=== PATIENT | female | born 2000 | race Caucasian/White ===

== ENCOUNTER 2023-02-18 18:49 | Emergency (ER) | payer OTHER, SELFPAY ==
[2023-02-18 19:18] VITALS: BP 113/68; PULSE 86; RESP 16; TEMP 36.3; O2SAT 98
--- NOTE | 2023-02-18 19:57 | ED.SEIZURE ---
HPI - Seizure General Chief Complaint: Seizure Stated Complaint: seizures Time Seen by Provider: 02/18/23 19:55 Source: patient and other (boyfriend) Mode of arrival: ambulatory Limitations: no limitations History of Present Illness HPI Narrative: This is a 22-year-old female with a history of epilepsy who reports having 5 seizures last night and 2 today. She loses consciousness during her seizures and is typically postictal afterwards. She states her primary care physician in [place] took her off Lamictal 100 mg b.i.d. a few months ago because she had a breakthrough seizure. She was not placed on alternative antiepileptic medication. She tried calling her neurologist Dr. Page's office in [place] (affiliated with [facility]) several times but they didn't answer their phone. She recently moved to this area and has a lot of stressors in her as she had to get away from a bad situation where she was living. Is on the phone initially when I came in with my homie who is in senior care. Her boyfriend enters shortly thereafter and she states he can stay in the room. He states he was able to calm her down last night in between seizures by stroking her hair which her mother had said would help. No incontinence of bowel or bladder, no tongue trauma. She denies any alcohol states she has been sleeping okay because she is on medicine for this. She denies any new medications. She previously used marijuana for her seizures but states she has not been able to use this lately because it is too expensive and she can't afford it. She denies ever having undergone an MRI. She states she was supposed to undergo an EEG which was 21 years old for her seizures but she was deemed to be too sick at that time with fever and upper respiratory symptoms the so was canceled that day and she tried for 2 weeks to schedule it without any success. Related Data Allergies Allergy/AdvReac Type Severity Reaction Status Date / Time chicken derived Allergy Vomiting Verified 02/18/23 19:25 PMFSH Past Medical History Medical History (Updated 02/19/23 @ 00:06 by Navdeep Freeman) Absence seizure Epilepsy Social History Social History (Updated 02/18/23 @ 22:59 by Renita Beyer MD) Alcohol intake: never Substance use: former Substance use type: marijuana Exam Narrative: GENERAL: Well-appearing, well-nourished, and in no acute distress. HEAD: Normocephalic, atraumatic. EYES: Non injected, non icteric ENT: Nares clear, no rhinorrhea or epistaxis. No tongue trauma. NECK: Supple. CHEST: Speaking in complete sentences. no respiratory distress. HEART: Regular rate and rhythm. . ABDOMEN: Soft, nondistended. EXTREMITIES: Normal range of motion. No edema. SKIN: Warm, dry, no rash. NEURO: No focal deficits. Alert and oriented. No abnormal movements appreciated. Speaking without aphasia or dysarthria. PSYCH: Normal mood and affect. Course Vital Signs Vital signs: Vital Signs Temperature 97.3 F L 02/18/23 19:18 Pulse Rate 86 02/18/23 19:18 Respiratory Rate 16 02/18/23 19:18 Blood Pressure 113/68 02/18/23 19:18 Pulse Oximetry 98 02/18/23 19:18 Oxygen Delivery Room Air 02/18/23 19:18 Temperature 97.3 F L 02/18/23 19:18 Pulse Rate 86 02/18/23 19:18 Respiratory Rate 16 02/18/23 19:18 Blood Pressure 113/68 02/18/23 19:18 Pulse Oximetry 98 02/18/23 19:18 Oxygen Delivery Room Air 02/18/23 19:18 MDM - Seizure MDM Narrative Medical decision making narrative: Patient is a 22 year old with pmh epilepsy who presents after a reported 5 seizures last night and 2 today. She states her PCP discontinued her Lamictal 100mg BID a few months ago after she had a breakthrough seizure. She has been unable to get ahold of her neurologist. She recently moved her so hasn't established with anyone in the area. POC glucose wnl. VS WNL. Seizures appear to be due to not taking any antiepileptic. Patient is back to [facility]
[2023-02-18 20:10] LABS: Glucose Point of Care 103 mg/dl (65-105)
[2023-02-18] MEDS: lamoTRIgine 100 MG TABLET PO (21:11)
== END 2023-02-18 21:38 | disposition home or self-care (01) ==
PROVIDERS: Emergency Provider Student in an Organized Health Care Education/Training Program
DX: G40.909 Epilepsy, unspecified, not intractable, without status epilepticus (principal)
CPT/HCPCS: 81025; 82948; 99283; A9270

== ENCOUNTER 2023-02-28 23:15 | Emergency (ER) | payer OTHER, SELFPAY ==
--- NOTE | ~2023-02-28 | XR_ITS ---
EXAMINATION: XR elbow LT min 3V DATE: 03/01/2023 06:07 INDICATION: Left elbow injury and pain. TECHNIQUE: 4 views of left elbow were obtained. COMPARISON: None. FINDINGS: Bone alignment is normal. No fracture. Joint spaces are normal. No elbow joint effusion. IMPRESSION: 1. Normal left elbow. Reviewed, dictated and finalized at location E. ITECTURE FACULTY MEMBER IMPRESSION: 1. Normal left elbow.
--- NOTE | ~2023-02-28 | XR_ITS ---
EXAMINATION: XR wrist LT 2V DATE: 03/01/2023 08:56 INDICATION: Distal left radioulnar joint subluxation status post reduction. TECHNIQUE: 3 views of left wrist were obtained. COMPARISON: Left wrist radiographs at 7:09 AM FINDINGS: Bone alignment is normal. No fracture. Joint spaces are normal. Cast/splint material is not ed. IMPRESSION: 1. Normal bone alignment. Reviewed, dictated and finalized at location E. R CONE MACHINE OPERATOR IMPRESSION: 1. Normal bone alignment.
--- NOTE | ~2023-02-28 | XR_ITS ---
EXAMINATION: XR wrist LT 2V DATE: 03/01/2023 07:20 INDICATION: Left wrist injury. Left wrist reduction. TECHNIQUE: 2 views of left wrist were obtained. COMPARISON: Left wrist radiographs 02/28/2023 FINDINGS: Bone alignment is normal. No fracture. Joint spaces are normal. Cast material is noted. IMPRESSION: 1. No fracture. Reviewed, dictated and finalized at location E. ICAL CARE RN IMPRESSION: 1. No fracture.
--- NOTE | ~2023-02-28 | XR_ITS ---
EXAMINATION: XR wrist LT min 3V DATE: 02/28/2023 23:52 INDICATION: Left wrist pain after fall TECHNIQUE: Posteroanterior, ulnar deviation, oblique, and lateral views of the left wrist were obtain ed. COMPARISON: None available FINDINGS: No fracture is identified. There appears to be mild dorsal displacement of the distal ulna with respect to the radius on the lateral view. There is soft tissue swelling of the wrist. IMPRESSION: 1. Possible distal radioulnar joint subluxation. Reviewed, dictated and finalized at location F. TENDER
--- NOTE | ~2023-02-28 | XR_ITS ---
EXAMINATION: XR forearm LT 2V DATE: 03/01/2023 06:07 INDICATION: Left forearm injury and pain. TECHNIQUE: 2 views of left forearm were obtained. COMPARISON: None. FINDINGS: Bone alignment is normal. No fracture. Joint spaces are normal. No elbow joint effusion. IMPRESSION: 1. Normal left forearm. Reviewed, dictated and finalized at location E. ING TUTOR IMPRESSION: 1. Normal left forearm.
[2023-02-28 23:19] VITALS: BP 139/86; PULSE 80; RESP 14; TEMP 36.8; O2SAT 100
[2023-03-01 03:57] VITALS: BP 113/70; PULSE 70; RESP 15; TEMP 36.6; O2SAT 99
--- NOTE | 2023-03-01 05:52 | ED.UPPEXIN ---
HPI - Extremity Injury (Upper) General Chief Complaint: Extremity Injury, Upper Stated Complaint: fall on left wrist yesterday Time Seen by Provider: 03/01/23 03:24 Source: patient Limitations: no limitations History of Present Illness HPI narrative: Patient is a 22-year-old female presents to the emergency department complaining of a left arm injury. Patient states Saturday night she was at work at [employer] around 9:00 p.m. when she had a seizure with a known history of seizures that was anxiety induced and thinks she hit her left wrist because she has been having pain ever since and wants to get her left wrist checked out. Patient denies any history of injuries to this region in the past. Patient states she is right-handed. Patient states that she has noticed that is protruding out where she is having pain when she notes a dorsal protrusion of the distal ulna. Patient describes the pain as an ache. Patient admits to increased pain with any types of movements including supination and pronation. Patient's her last menstrual period is currently. Patient denies any allergies medications. Patient denies any other complaints. Patient denies numbness, weakness, paresthesias. Related Data Allergies Allergy/AdvReac Type Severity Reaction Status Date / Time chicken derived Allergy Vomiting Verified 02/18/23 19:25 Review of Systems Review of Systems: A 10 system review of systems was completed on the patient and is negative except for what is stated in the HPI. Nursing and ancillary documentation was reviewed. [facility] Past Medical History Medical History (Updated 03/01/23 @ 08:00 by Je Pope DO) Absence seizure Epilepsy Social History Social History (Updated 02/18/23 @ 22:59 by Renita Beyer MD) Alcohol intake: never Substance use: former Substance use type: marijuana Comments At time of signature, I have reviewed and agree with nursing past medical, surgical, social and family history unless otherwise noted. Please see the nursing chart for further information. There is no relevant family history pertinent to the presenting complaint. Exam Narrative: CONST: No acute distress. Well nourished. HENMT: Head is normocephalic and atraumatic. Moist mucous membranes. No posterior oropharynx erythema. EYES: No conjunctival icterus, injection, or pallor. PERRL. NECK: No meningeal signs. RESP: Able to speak in full sentences. Normal respiratory effort. CTAB. CARDIO: Regular rate. Regular rhythm. 2+ DP and radial pulses bilaterally. GI: Nondistended. No tenderness to palpation. Soft. : No CVA tenderness to palpation. SKIN: No rashes or lesions noted on exposed skin. NEURO: Oriented x3. Moves all extremities. Patient is able to make an okay sign with her left hand, abduct and adduct all of her fingers of her left hand, make a fist with her left hand. Patient has pain with flexion and extension of her left wrist in addition to pronation and supination and is holding in between pronation and supination. Sensation is intact to light touch throughout the entire left upper extremity. EXTREM/MSK/BACK: No pedal edema. Mild dorsal subluxation of the left distal ulna that reduces with direct pressure and supination and subluxes again with any pronation or lack of pressure over the dorsal distal ulna. No ulnar or radial deviation joint laxity of the left wrist. Capillary refill is less than 2 seconds in all distal digits of the left hand. Compartments are soft throughout the left upper extremity. No snuffbox tenderness to palpation bilaterally. PSYCH: Normal affect. Course Vital Signs Vital signs: Vital Signs Temperature 98.2 F 02/28/23 23:19 Pulse Rate 80 02/28/23 23:19 Respiratory Rate 14 02/28/23 23:19 Blood Pressure 139/86 02/28/23 23:19 Pulse Oximetry 100 02/28/23 23:19 Oxygen Delivery Room Air 02/28/23 23:19 Temperature 97.9 F 03/01/23 03:57 Pulse Rate 83 02/11
[2023-03-01 06:39] VITALS: BP 131/94; PULSE 91; RESP 14; O2SAT 100
[2023-03-01 07:26] VITALS: BP 125/97; PULSE 83; RESP 14; O2SAT 98
--- NOTE | 2023-03-01 08:46 | PC.NURSE ---
Post reduction OCL applied per PCT at 0700. Splint removed per Dr. Pope. Dr. Pope and Dr. Benoit applied plaster cast to left arm.
== END 2023-03-01 10:34 | disposition home or self-care (01) ==
PROVIDERS: Emergency Provider Student in an Organized Health Care Education/Training Program
DX: S63.072A Subluxation of distal end of left ulna, initial encounter (principal); G40.909 Epilepsy, unspecified, not intractable, without status epilepticus; W22.8XXA Striking against or struck by other objects, initial encounter
CPT/HCPCS: 25605; 25675; 73080; 73090; 73100; 73110; 99285; A4565

== ENCOUNTER 2023-03-10 03:46 | Emergency (ER) | payer OTHER, SELFPAY ==
[2023-03-10 03:49] VITALS: BP 120/84; PULSE 97; RESP 16; TEMP 36.8; O2SAT 100
[2023-03-10 04:36] LABS: Basophils Percent Auto 0.3 % (0.2-1.2); Eosinophils Absolute Auto 0.2 K/mm3 (0-0.3); Eosinophils Percent Auto 2.4 % (0-4.4); Hematocrit 37.3 % (37.0-47.0); Hemoglobin 12.2 g/dL (12.0-15.0); Immature Granulocyte Absolute 0.02 K/mm3 (0.00-0.031); Immature Granulocyte Percent A 0.2 % (0-0.5); Lymphocytes Absolute Auto 2.39 K/mm3 (0.9-3.2); Mean Corpuscular HGB Conc 32.7 g/dl (32-36); Mean Corpuscular Hemoglobin 31.4 pg (26-34); Mean Corpuscular Volume 95.9 fl (80-100); Mean Platelet Volume 11.2 fl (7.4-10.4); Monocytes Absolute Auto 0.5 K/mm3 (0.1-0.6); Monocytes Percent Auto 5.3 % (2.6-8.5); Neutrophils Absolute Auto 5.7 K/mm3 (1.3-6.7); Neutrophils Percent Auto 64.8 % (45.5-73.1); Platelet Count Result 189 k/mm3 (150-375); Red Blood Count 3.89 M/mm3 (4.2-5.4); Red Cell Distribution Width 12.1 % (11.5-14.5); White Blood Count 8.9 K/mm3 (4.5-10.0)
[2023-03-10 04:43] LABS: Appearance Urine Cloudy (Clear); Bacteria Urine 4+ /hpf; Bilirubin Urine Negative (Negative); Blood Urine Negative (Negative); Color Urine Yellow (Yellow); Glucose Urine UA Negative (Negative); Ketones Urine Negative (Negative); Leukocyte Esterase Ur Trace LEU/UL (Negative); Nitrate Urine Positive (Negative); Non Pathogenic Casts 0-2; Protein Urine Negative (Negative); RBC Urine 0-2 /hpf (0-2); Specific Grav Ur 1.014 (1.001-1.035); Squamous Epithelial Cell Urine Few /hpf (Few); Urobilinogen Urine 0.2 mg/dL (<2.0); pH Urine 6.5 (5.0-9.0)
[2023-03-10 04:49] LABS: Alanine Aminotransferase 10 U/L (6-35); Albumin Level 4.4 g/dL (3.5-5.1); Alkaline Phosphatase 66 U/L (38-126); Anion Gap 9 mmol/L (8-16); Aspartate Amino Transferase 17 U/L (14-36); Bilirubin,Total 0.4 mg/dL (0.2-1.3); Blood Urea Nitrogen 8 mg/dL (7-17); Calcium 9.5 mg/dL (8.4-10.2); Carbon Dioxide 23 mmol/L (22-30); Chloride 106 mmol/L (98-107); Estimated CRCL calculation 83 ml/min; Estimated Glomerular Filt Rate > 60; Glucose 99 mg/dL (65-110); Potassium 3.4 mmol/L (3.4-5.0); Sodium 138 mmol/L (137-145)
[2023-03-10 04:50] LABS: Ethanol < 10 mg/dL (<10); Platelet Clumps Present; Platelet Estimate Adequate (Adequate)
[2023-03-10 04:52] LABS: Large Platelets Present
[2023-03-10 04:53] LABS: Atypical Lymphocytes Present; Schistocytes None Seen (NORMAL)
[2023-03-10 05:01] LABS: Add Urine Microscopic? YES; Amphetamine Screen Urine Negative (Negative); Barbiturate Screen Urine Negative (Negative); Benzodiazepines Screen Urine Negative (Negative); Cannabinoid Screen Urine Positive (Negative); Cocaine Screen Urine Negative (Negative); Methadone Screen Urine Negative (Negative); Opiate Screen Urine Negative (Negative); Phencyclidine Screen Urine Negative (Negative)
[2023-03-10 05:12] LABS: SARS-CoV-2 RNA PCR Negative (Negative)
--- NOTE | 2023-03-10 05:27 | ED.GENADULT ---
HPI - General Adult General Chief complaint: Psychiatric Symptoms <Jesus Chavez MD - Last Filed: 03/16/23 19:12> Stated complaint: psych evaluation <Jesus Chavez MD - Last Filed: 03/16/23 19:12> Time Seen by Provider: 03/10/23 03:57 <Jesus Chavez MD - Last Filed: 03/16/23 19:12> History of Present Illness HPI narrative: patient is a 22-year-old female who presents emergency department chief complaint of hearing voices and suicidal ideation patient reports that she currently does not have a place to stay the area is trying to get to a higher were her boyfriend the patient states that down she was going to stay with someone tonight over coming on her and she decided not to stay there. The patient reports that she has been having intermittent thoughts of hurting herself with not have a specific plan at this time. <Jesus Chavez MD - Last Filed: 03/16/23 19:12> patient is a 22-year-old female who presents to the emergency department chief complaint of hearing voices and suicidal ideation patient reports that she currently does not have a place to stay the area is trying to get to a higher were her boyfriend the patient states that down she was going to stay with someone tonight over coming on her and she decided not to stay there. The patient reports that she has been having intermittent thoughts of hurting herself with not have a specific plan at this time. <Mike Ruano MD - Last Filed: 03/11/23 15:58> Related Data Allergies/adverse reactions: Allergies Allergy/AdvReac Type Severity Reaction Status Date / Time chicken derived Allergy Vomiting Verified 02/18/23 19:25 <Jesus Chavez MD - Last Filed: 03/16/23 19:12> Review of Systems Review of Systems: A 10 system review of systems was completed on the patient and is negative except for what is stated in the HPI. Nursing and ancillary documentation was reviewed. <Jesus Chavez MD - Last Filed: 03/16/23 19:12> [facility] Past Medical History Medical History: Medical History Absence seizure Epilepsy <Jesus Chavez MD - Last Filed: 03/16/23 19:12> Social History Social History: Social History Alcohol intake: never Substance use: former Substance use type: marijuana, methamphetamine and other <Jesus Chavez MD - Last Filed: 03/16/23 19:12> Exam Narrative: GENERAL: Well-appearing, well-nourished, and in no acute distress. HEAD: Normocephalic, atraumatic. EYES: PERRLA and EOMI. ENT: Nares clear, no rhinorrhea or epistaxis. Mucous membranes moist. NECK: Supple. CHEST: Clear to auscultation. No respiratory distress. HEART: Regular rate and rhythm. No murmur heard. Normal peripheral pulses. ABDOMEN: Soft, nontender, nondistended, normal active bowel sounds. EXTREMITIES: Normal range of motion. No edema. SKIN: Warm, dry, no rash. NEURO: No focal deficits. Alert and oriented x3. PSYCH: flat affect <Jesus Chavez MD - Last Filed: 03/16/23 19:12> Course Vital Signs Vital signs: Vital Signs Temperature 36.8 C 03/10/23 03:49 Pulse Rate 97 03/10/23 03:49 Respiratory Rate 16 03/10/23 03:49 Blood Pressure 120/84 03/10/23 03:49 Pulse Oximetry 100 03/10/23 03:49 Oxygen Delivery Room Air 03/10/23 03:49 Temperature 36.6 C 03/10/23 18:50 Pulse Rate 72 03/10/23 18:50 Respiratory Rate 16 03/10/23 18:50 Blood Pressure 112/68 03/10/23 18:50 Pulse Oximetry 100 03/10/23 18:50 Oxygen Delivery Room Air 03/10/23 03:49 <Jesus Chavez MD - Last Filed: 03/16/23 19:12> Vital Signs Temperature 36.8 C 03/10/23 03:49 Pulse Rate 97 03/10/23 03:49 Respiratory Rate 16 03/10/23 03:49 Blood Pressure 120/84 03/10/23 03:49
[2023-03-10] MEDS: CEPHALEXIN 500 MG CAPSULE PO ×2 (05:40→23:03)
[2023-03-10 10:00] VITALS: BP 114/70; PULSE 76; RESP 14; TEMP 36.6; O2SAT 100
[2023-03-10 14:00] VITALS: BP 116/68; PULSE 72; RESP 14; TEMP 36.7; O2SAT 98
[2023-03-10 18:50] VITALS: BP 112/68; PULSE 72; RESP 16; TEMP 36.6; O2SAT 100
--- NOTE | 2023-03-10 20:43 | PC.NURSE ---
This RN took over care of pt at 1900. Pt calm and cooperative. Pt stated to this RN that she feels as if she is being forced to get psychiatric treatment. This Rn explained process to pt, pt cooperative. Pt chart faxed to [facility] awaiting call back on status of pt acceptance.
--- NOTE | 2023-03-10 22:33 | PC.NURSE ---
Pt accepted at [facility].
--- NOTE | 2023-03-10 22:34 | PC.NURSE ---
Report given Ava GONGORA at this time.
== END 2023-03-10 23:30 ==
LOC: ANHED 04:55
PROVIDERS: Emergency Provider Emergency Medicine
DX: R45.851 Suicidal ideations (principal); N39.0 Urinary tract infection, site not specified; Z11.52 Encounter for screening for COVID-19; G40.909 Epilepsy, unspecified, not intractable, without status epilepticus
CPT/HCPCS: 36415; 80053; 80307; 81001; 81025; 84443; 85025; 85055; 87086; 87635; 99285; A9270

== ENCOUNTER 2023-03-31 10:37 | Emergency (ER) | payer OTHER, SELFPAY ==
[2023-03-31 10:41] VITALS: BP 135/92; PULSE 74; RESP 16; O2SAT 100
[2023-03-31 10:43] VITALS: BP 135/92; PULSE 78; RESP 16; TEMP 36.7; O2SAT 100
[2023-03-31 11:16] VITALS: BP 123/80; PULSE 78; RESP 16; O2SAT 100
[2023-03-31 11:31] VITALS: BP 128/80; PULSE 74; RESP 16; TEMP 36.6; O2SAT 100
--- NOTE | 2023-03-31 11:43 | ED.NAVMDI ---
HPI - Nausea/Vomiting/Diarrhea General Chief complaint: Nausea/Vomiting/Diarrhea Stated complaint: OD ON [place] ?? Time Seen by Provider: 03/31/23 10:40 Source: patient and old records reviewed Mode of arrival: EMS Limitations: no limitations History of Present Illness HPI Narrative: Patient is a 22-year-old female who presents the ED via EMS with report of potential overdose. Patient reports she recently injured her left wrist and was prescribed hydrocodone for this. She was seen in the ED initially and then was rx'd [place] by her primary care doctor a few days ago. Per med rec, patient had 30 hydrocodone/acetaminophen 5/325 prescribed [address] Dr[address] Marco Bronwe on 03/27 (furnace tender in [place], [place]). Patient reports she has been taking these as prescribed over the last couple of days, has not been taking more than directed. She states over the last couple days she has had intermittent dizziness/lightheadedness and thought this may be related to the hydrocodone. She last took a pill last night and developed nausea and vomiting after taking the hydrocodone. She believes she only took 1 pill last night, but states she is not sure. States her memory is bad. Reports she woke up with an empty pill bottle and persistent nausea. She became concerned that she may have overdosed herself on the hydrocodone. She then contacted EMS. Patient notes that her significant other ended their relationship this morning and states she was kicked out of his house. She denies taking the medications in excess in any attempt to harm herself or commit suicide. She denies any other drug or etoh use. Denies any other attempts at self harm. She denies current SI. She denies HI. States she just wanted to be checked out to make sure everything was okay. Patient denies abdominal pain, diarrhea, constipation, fevers, focal weakness or numbness, vision changes, fatigue/drowsiness. Related Data Allergies Allergy/AdvReac Type Severity Reaction Status Date / Time chicken derived Allergy Vomiting Verified 02/18/23 19:25 Review of Systems Review of Systems: CONSTITUTIONAL: Denies fever, chills, or sweats. CARDIOVASCULAR: Denies chest pain. RESPIRATORY: Denies dyspnea. GASTROINTESTINAL: See HPI. MUSCULOSKELETAL: Denies back pain, extremity pain, myalgia. NEUROLOGIC: See HPI PSYCHIATRIC: See HPI All systems reviewed & are unremarkable except as noted in HPI and below PMFSH Past Medical History Medical History Absence seizure Epilepsy Social History Social History Alcohol intake: never Substance use: former Substance use type: marijuana, methamphetamine and other Exam Narrative: GENERAL: Well appearing, well-nourished, non-toxic, in no acute distress. HEAD: Normocephalic, atraumatic. EYES: PERRL/EOMI, pupils slightly dilated. No nystagmus. RESPIRATORY: Airway patent, respirations nonlabored. Clear to auscultation bilaterally, no rales, rhonchi, wheezing. CARDIOVASCULAR: Regular rate and rhythm ABDOMINAL: Soft, no tenderness throughout abdomen, nondistended. Normoactive BS. MUSCULOSKELETAL: Moves all extremities. No gross deformities. SKIN: Warm, dry, normal color. NEURO: A&O X3. Speech clear. Cranial nerves II-XII grossly intact. Steady gait. No ataxic movements. No focal deficits. PSYCHIATRIC: Flat affect, labile mood. Normal interaction. Course Vital Signs Vital signs: Vital Signs Pulse Rate 74 03/31/23 10:41 Respiratory Rate 16 03/31/23 10:41 Blood Pressure 135/92 H 03/31/23 10:41 Pulse Oximetry 100 03/31/23 10:41 Temperature 97.9 F 03/31/23 11:31 Pulse Rate 74 03/31/23 11:31 Respiratory Rate 16 03/31/23 11:31 Blood Pressure 128/80 03/31/23 11:31 Pulse Oximetry 100 03/31/23 11:31 MDM - Nausea/Vomiting/Diarrhea MDM Narrative Medical decision making narrative: Patient presen
--- NOTE | 2023-03-31 11:44 | PC.NURSE ---
Pt states I feel fine. My vitals have been good. Encouraged pt to stay for evaluation and she reports her BF is going to pick her up. Denies being homicidal or suicidal
== END 2023-03-31 11:48 | disposition left against medical advice (07) ==
LOC: ANHED 11:13
PROVIDERS: Emergency Provider Physician Assistant
DX: F11.10 Opioid abuse, uncomplicated (principal); R11.2 Nausea with vomiting, unspecified; S69.92XD Unspecified injury of left wrist, hand and finger(s), subsequent encounter; G40.909 Epilepsy, unspecified, not intractable, without status epilepticus; X58.XXXD Exposure to other specified factors, subsequent encounter
CPT/HCPCS: 99281